=== PATIENT | male | born 1990 | race Two or more races ===

== ENCOUNTER 2017-01-23 22:00 | Inpatient (IN) | payer OTHER ==
[~2017-01-23] VITALS: Ht 172.7 cm; Wt 72.5 kg
[2017-01-23] MEDS ORDERED: ACETAMINOPHEN 325 MG TAB PO ONE ×2 (22:08→22:15)
[2017-01-23 22:45] LABS: Basophils # (auto) 0 uL; Basophils % (auto) 0.1 % (0.0-2.0); Eosinophils # (auto) 0 uL; Hematocrit 48.3 % (41.0-53.0); Hemoglobin 16.4 g/dL (13.5-17.5); Lymphocytes # (auto) 0.9 uL; Mean Corpuscular Hemoglobin 27.9 pg (28.0-32.0); Mean Corpuscular Hgb Conc. 33.9 g/dL (32.0-36.0); Mean Corpuscular Volume 82.3 fL (80.0-100.0); Mean Platelet Volume 7.9 fL (7.4-10.4); Monocytes # (auto) 0.7 uL; Monocytes % (auto) 7.3 % (0.0-12.0); Neutrophils # (auto) 8.3 uL; Neutrophils % (auto) 83.6 % (37.0-80.0); Platelet Count (auto) 251 10^3/uL (140-450); Red Cell Distribution Width 13.5 % (11.6-16.0); White Blood Cell 9.9 10^3/uL (4.4-10.8)
[2017-01-23 23:02] LABS: Albumin 3.3 g/dL (3.4-5.0); Calcium 7.7 mg/dL (8.5-10.1); Potassium 3.9 mmol/L (3.5-5.1)
[2017-01-23 23:13] LABS: Bilirubin, Total 0.9 mg/dL (0.2-1.0); Total Protein 6.9 g/dL (6.4-8.2)
[2017-01-24] MEDS ORDERED: SODIUM CHLORIDE 0.9% 1,000 ML IV ONE (02:30)
[2017-01-24] MEDS ORDERED: PIPERACILLIN-TAZOB 3.375GM 100 ML IV ONE (02:45)
[2017-01-24] MEDS: SODIUM CHLORIDE 0.9% 1,000 ML IV SCH ×2 (04:58→19:01)
[2017-01-24] MEDS ORDERED: ONDANSETRON HCL 4 MG/2 ML VIAL IV PRN (05:00)
[2017-01-24] MEDS: metroNIDAZOLE 250MG/50 ML 50 ML IV SCH ×5 (05:00→21:45)
[2017-01-24] MEDS ORDERED: ACETAMINOPHEN 325 MG TAB PO PRN (05:00)
[2017-01-24] MEDS ORDERED: metroNIDAZOLE 500MG/100ML 100 ML IV ONE (05:30)
[2017-01-24] MEDS: HYDROcodone-ACET 5/325MG TAB PO PRN ×2 (06:18→20:27)
[2017-01-24 08:31] VITALS: BP 108/68
[2017-01-24] MEDS: FAMOTIDINE 20 MG TAB PO SCH ×2 (09:38→21:44)
[2017-01-24] MEDS: cefTRIAXone 1GM/50ML D5W 50 ML IV SCH (09:38)
[2017-01-24 12:48] VITALS: BP 104/60
[2017-01-24 17:00] VITALS: BP 113/67
[2017-01-24 21:58] VITALS: BP 103/57
[2017-01-25] VITALS (7 sets, daily range): BP systolic 105–126; BP diastolic 64–78
[2017-01-25] MEDS: SODIUM CHLORIDE 0.9% 1,000 ML IV SCH ×2 (05:52→18:02)
[2017-01-25] MEDS: metroNIDAZOLE 250MG/50 ML 50 ML IV SCH ×4 (05:52→22:00)
[2017-01-25 05:59] LABS: Basophils # (auto) 0 uL; Basophils % (auto) 0.4 % (0.0-2.0); Eosinophils # (auto) 0.1 uL; Eosinophils % (auto) 1.2 % (0.0-7.0); Hematocrit 43.2 % (41.0-53.0); Hemoglobin 14.3 g/dL (13.5-17.5); Lymphocytes # (auto) 1.5 uL; Lymphocytes % (auto) 30.1 % (10.0-50.0); Mean Corpuscular Hemoglobin 27.6 pg (28.0-32.0); Mean Corpuscular Hgb Conc. 33.1 g/dL (32.0-36.0); Mean Corpuscular Volume 83.4 fL (80.0-100.0); Mean Platelet Volume 8.5 fL (7.4-10.4); Monocytes # (auto) 0.6 uL; Monocytes % (auto) 11.4 % (0.0-12.0); Neutrophils # (auto) 2.8 uL; Neutrophils % (auto) 56.9 % (37.0-80.0); Platelet Count (auto) 199 10^3/uL (140-450); Red Cell Distribution Width 14.1 % (11.6-16.0); White Blood Cell 4.9 10^3/uL (4.4-10.8)
[2017-01-25 06:54] LABS: Albumin 2.5 g/dL (3.4-5.0); BUN/Creatinine Ratio 7.8; Bilirubin, Total 0.4 mg/dL (0.2-1.0); Calcium 7.9 mg/dL (8.5-10.1); Magnesium 2.3 mg/dL (1.6-2.6); Potassium 3.9 mmol/L (3.5-5.1); Total Protein 5.6 g/dL (6.4-8.2)
[2017-01-25] MEDS: FAMOTIDINE 20 MG TAB PO SCH ×2 (09:43→22:00)
[2017-01-25] MEDS: cefTRIAXone 1GM/50ML D5W 50 ML IV SCH (09:43)
[2017-01-25] MEDS: HYDROcodone-ACET 5/325MG TAB PO PRN ×3 (09:54→20:39)
[2017-01-25] MEDS ORDERED: GOLYTELY 4L KIT PO ONE (20:00)
[2017-01-26 04:48] VITALS: BP 106/66
[2017-01-26] MEDS: SODIUM CHLORIDE 0.9% 1,000 ML IV SCH ×2 (05:23→17:14)
[2017-01-26] MEDS ORDERED: MAGNESIUM CITRATE SOLUTION 300 ML BTL PO ONE (06:00)
[2017-01-26] MEDS ORDERED: GOLYTELY 4L KIT PO ONE (06:00)
[2017-01-26] MEDS: metroNIDAZOLE 250MG/50 ML 50 ML IV SCH ×3 (06:57→21:56)
[2017-01-26] MEDS ORDERED: diphenhdrAMINE HCL 50 MG/1 ML VL ONE (08:17)
[2017-01-26] MEDS ORDERED: SODIUM CHLORIDE LOCK 10 ML ONE (08:17)
[2017-01-26] MEDS ORDERED: MIDAZOLAM HCL 5 MG/ML-1ML VIAL ONE (08:17)
[2017-01-26] MEDS ORDERED: fentaNYL CITRATE 100 MCG/2 ML VL ONE (08:17)
[2017-01-26] MEDS: cefTRIAXone 1GM/50ML D5W 50 ML IV SCH (08:50)
[2017-01-26] MEDS: FAMOTIDINE 20 MG TAB PO SCH ×2 (08:52→21:56)
[2017-01-26 09:00] VITALS: BP 112/66
[2017-01-26 10:40] LABS: Partial Thromboplastin Time 31.3 sec (22.64-33.71); Prothrombin Time 12.2 sec (9.37-12.3)
[2017-01-26 10:51] LABS: INR 1.18 (0.9-1.15)
[2017-01-26 12:58] VITALS: BP 119/76
[2017-01-26] MEDS ORDERED: fentaNYL CITRATE 100 MCG/2 ML VL IV ONE ×2 (15:45→15:46)
[2017-01-26] MEDS ORDERED: MIDAZOLAM HCL 5 MG/ML-1ML VIAL IV ONE ×3 (15:45→15:52)
[2017-01-26] MEDS ORDERED: SIMETHICONE 40 MG/0.6 ML ORAL DROP ONE (15:46)
[2017-01-26] MEDS ORDERED: diphenhdrAMINE HCL 50 MG/1 ML VL IV ONE ×2 (15:47→15:52)
[2017-01-26 17:00] VITALS: BP 115/64
[2017-01-26] MEDS: SULFASALAZINE 500 MG TAB PO SCH ×2 (18:14→21:56)
[2017-01-26 19:30] VITALS: BP 118/61
[2017-01-26] MEDS: methylPREDNISolone SOD SUCC 40 MG/ML VL IV SCH (21:56)
[2017-01-26 22:15] VITALS: BP 118/61
[2017-01-27] MEDS: metroNIDAZOLE 250MG/50 ML 50 ML IV SCH ×2 (05:36→14:05)
[2017-01-27] MEDS: SULFASALAZINE 500 MG TAB PO SCH ×2 (05:36→12:50)
[2017-01-27] MEDS: methylPREDNISolone SOD SUCC 40 MG/ML VL IV SCH ×2 (05:36→14:05)
[2017-01-27 05:40] VITALS: BP 111/78
[2017-01-27 05:46] LABS: Basophils # (auto) 0 uL; Basophils % (auto) 0.3 % (0.0-2.0); Eosinophils # (auto) 0 uL; Eosinophils % (auto) 0.2 % (0.0-7.0); Hematocrit 47.8 % (41.0-53.0); Lymphocytes % (auto) 28.2 % (10.0-50.0); Mean Corpuscular Hemoglobin 27.7 pg (28.0-32.0); Mean Corpuscular Hgb Conc. 33.4 g/dL (32.0-36.0); Mean Platelet Volume 8.5 fL (7.4-10.4); Monocytes # (auto) 0.2 uL; Monocytes % (auto) 4.7 % (0.0-12.0); Neutrophils # (auto) 2.3 uL; Neutrophils % (auto) 66.6 % (37.0-80.0); Platelet Count (auto) 289 10^3/uL (140-450); Red Cell Distribution Width 14.3 % (11.6-16.0); White Blood Cell 3.4 10^3/uL (4.4-10.8)
[2017-01-27 05:56] LABS: INR 1.12 (0.9-1.15); Prothrombin Time 11.5 sec (9.37-12.3)
[2017-01-27 06:01] LABS: Albumin 2.8 g/dL (3.4-5.0); BUN/Creatinine Ratio 7.6; Magnesium 2.2 mg/dL (1.6-2.6); Potassium 4.4 mmol/L (3.5-5.1)
[2017-01-27 06:05] LABS: Bilirubin, Total 0.2 mg/dL (0.2-1.0); Total Protein 6.1 g/dL (6.4-8.2)
[2017-01-27] MEDS: SODIUM CHLORIDE 0.9% 1,000 ML IV SCH (07:58)
[2017-01-27 09:00] VITALS: BP 107/63
[2017-01-27] MEDS: cefTRIAXone 1GM/50ML D5W 50 ML IV SCH (09:31)
[2017-01-27] MEDS: FAMOTIDINE 20 MG TAB PO SCH (09:37)
[2017-01-27 13:00] VITALS: BP 122/69
[2017-01-27] MEDS ORDERED: SODIUM CHLORIDE 0.9% 1,000 ML IV SCH (13:21)
== END 2017-01-27 15:10 | disposition home or self-care (01) | DRG 253 ==
LOC: ER 22:06 → OVERFLOW 22:07 → EAST 01-24 07:46 → WEST WING 01-24 11:08
PROVIDERS: ADMIT Nurse Practitioner; ATTEND Internal Medicine
PROC: 0DBG8ZX Excision of Left Large Intestine, Via Natural or Artificial Opening Endoscopic, Diagnostic (ICD-10-PCS; principal; 2017-01-23)
PROC: 0DBF8ZX Excision of Right Large Intestine, Via Natural or Artificial Opening Endoscopic, Diagnostic (ICD-10-PCS; 2017-01-23)
DX: K62.5 Hemorrhage of anus and rectum (principal); N17.0 Acute kidney failure with tubular necrosis; K52.9 Noninfective gastroenteritis and colitis, unspecified; E87.1 Hypo-osmolality and hyponatremia; F15.90 Other stimulant use, unspecified, uncomplicated
CPT/HCPCS: 36415; 74176; 80053; 80061; 82150; 83605; 83690; 83735; 85025; 85610; 85730; 87040; 96365; 96366; 96375; G0434; J0696; J2250; J2543; J3490

== ENCOUNTER 2024-10-01 09:53 | Inpatient (IN) | payer MEDICAID ==
[~2024-10-01] VITALS: Ht 172.7 cm; Wt 83.7 kg
--- NOTE | 2024-10-01 10:17 | ED.PDOC ---
History of Present Illness HPI Comments 34 year old male presents to the ED with chief complaint of spider bite. Patient relays that he believes he was bite by a "black spider" around 5am to the right lower leg, managing to smash the spider at the time. Patient reports that he soon started to experience burning/sharp pain to the site of the bite that radiates up his leg and to his abdomen, causing cramping and back stiffness. Patient states he is now experiencing chest pressure and denies any history of cardiac disease. Patient denies any N/V/D, fever, chills, dizziness, headache, SOB or numbness. Chief Complaint: Insect Bite Time Seen by MD: 10:12 Reviewed Notes: Nurses Notes, Medications, Allergies Allergies: Coded Allergies: NO KNOWN ALLERGIES (Unverified , 01/23/17) Home Meds No Active Prescriptions or Reported Meds Information Source: Patient Mode of Arrival: Ambulatory Severity: Moderate Timing: Hours Duration: Since onset Prehospital treatment: None Past Medical History PAST MEDICAL HISTORY: Schizophrenia Past Medical History (Other): Bipolar disorder Surgical History: Denies all surgeries Family History Family History: Unobtainable Social History Smoker: Non-Smoker Alcohol: Denies ETOH Use Drugs: Methamphetamine Lives In: Home Constitutional: denies: chills, diaphoresis, fatigue, fever, malaise, sweats, weakness, others EENTM: denies: blurred vision, double vision, ear bleeding, ear discharge, ear drainage, ear pain, ear ringing, eye pain, eye redness, hearing loss, mouth pa in, mouth swelling, nasal discharge, nose bleeding, nose congestion, nose pain, photophobia, tearing, throat pain, throat swelling, voice changes, others Respiratory: denies: cough, hemoptysis, orthopnea, SOB at rest, shortness of breath, SOB with excertion, stridor, wheezing, others Cardiovascular: reports: chest pain; denies: dizzy spells, diaphoresis, Dyspnea on exertion, edema, irregular heart beat, left arm pain, lightheadedness, palpitations, PND, syncope, others Gastrointestinal: reports: abdominal pain; denies: abdomen distended, blood streaked bowels, constipated, diarrhea, dysphagia, difficulty swallowing, hematemesis, melena, nausea, poor appetite, poor fluid intake, rectal bleeding, rectal pain, vomiting, others Genitourinary: denies: burning, dysuria, flank pain, frequency, hematuria, incontinence, penile discharge, penile sore, pain, testicle pain, testicle swelling, urgency, others Neurological: denies: dizziness, fainting, headache, left sided numbness, left sided weakness, numbness, paresthesia, pre-existing deficit, right sided numbness, right sided weakness, seizure, speech problems, tingling, tremors, weakness, others Musculoskeletal: reports: others (Back stiffness, Right lower leg radiating burning pain); denies: back pain, gout, joint pain, joint swelling, muscle pain, muscle stiffness, neck pain Integumetry: denies: bruises, change in color, change in hair/nails, dryness, laceration, lesions, lumps, rash, wounds, others Allergic/Immunocompromised: denies: Difficulty Healing, Frequent Infections, Hives, Itching, others Hematologic/Lymphatic: denies: anemia, blood clots, easy bleeding, easy bruising, swollen glands, others Endocrine: denies: excessive hunger, excessive sweating, excessive thirst, excessive urination, flushing, intolerance to cold, intolerance to heat, unexplained weight gain, unexplained weight loss, others Psychiatric: denies: anxiety, bipolar disorder, depression, hopeless, panic disorder, schizophrenia, sleepless, suicidal, others All Other Systems: Reviewed and Negative Physical Exam General Appearance: Moderate Distress, Normal HEENT: Normal ENT Inspection, PERRL/EOMI Neck: Full Range of Motion, Non-Tender, Normal, Normal Inspection Respiratory: Chest Non-Tender, Lungs Clear, No Accessory Muscle Use, No Respiratory Distress, Normal Breath Sounds Cardiovascular: No Edema, No JVD, No Murmur, No Gallop, Normal Peripheral Pulses, Regular Rate/Rhythm Breast Exam: Deferred Gastrointestinal: No Organomegaly, Non Tender, No Pulsatile Mass, Normal Bowel Sounds, Other (Palpable muscle cramps to abdominal wall) Genitalia: Deferred Pelvic: Deferred Rectal: Deferred Extremities: No calf tenderness, Normal capillary refill, Normal inspection, Normal range of motion, Non-tender, No pedal edema Musculoskeletal : Apperance: Normal Neurologic: Alert, ladies locker room attendant II-XII nml as Tested, No Motor Deficits, Normal Affect, Normal Mood, No Sensory Deficits Cerebellar Function: Normal Reflexes: Normal Skin: Dry, Normal Color, Warm Lymphatic: No Adenopathy Was a procedure done? Was a procedure done?: No EKG EKG : Pulse Rate (adult): 68 [place]: Normal Cardiac Rhythm: NSR Block: None Hypertrophy: None ST: Normal Differential Dx Considerations may include: anaphylaxis, allergic reaction, cellulitis, rhabdomyolysis, coronary ischemia and others X-Ray, Labs, Meds, VS Vital Signs Date Time Temp Pulse Resp B/P (MAP) Pulse Ox O2 Delivery O2 Flow Rate FiO2 10/01/24 11:03 77 20 147/104 10/01/24 11:00 72 16 147/104 (118) 100 10/01/24 10:33 75 20 141/88 10/01/24 10:20 98.3 75 20 141/88 (105) 99 98.3 10/01/24 10:20 75 75 99 Room Air* 0 21 10/01/24 10:17 68 10/01/24 10:05 68 10/01/24 10:00 97.8 90 18 137/93 (108) 100 Lab Test 10/01/24 10:17 Range/Units White Blood Count 5.4 4.4-10.8 10^3/uL Red Blood Count 5.29 4.5-5.90 10^6/uL Hemoglobin 15.2 13.5-17.5 g/dL Hematocrit 43.6 41.0-53.0 % Mean Corpuscular Volume 82.4 80.0-100.0 fL Mean Corpuscular Hemoglobin 28.8 28.0-32.0 pg Mean Corpuscular Hemoglobin Concent 35.0 32.0-36.0 g/dL Red Cell Distribution Width 14.0 11.8-14.3 % Platelet Count 240 140-450 10^3/uL Mean Platelet Volume 8.2 6.9-10.8 fL Neutrophils (%) (Auto) 62.2 37.0-80.0 % Lymphocytes (%) (Auto) 28.6 10.0-50.0 % Monocytes (%) (Auto) 7.0 0.0-12.0 % Eosinophils (%) (Auto) 1.5 0.0-7.0 % Basophils (%) (Auto) 0.7 0.0-2.0 % Neutrophils # (Auto) 3.4 1.6-8.6 10 ^3/uL Lymphocytes # (Auto) 1.5 0.4-5.4 10 ^3/uL Monocytes # (Auto) 0.4 0-1.3 10 ^3/uL Eosinophils # (Auto) 0.1 0-0.8 10 ^3/uL Basophils # (Auto) 0 0-0.2 10 ^3/uL Nucleated Red Blood Cells 0.1 % Sodium Level 141 136-145 mmol/L Potassium Level 3.9 3.5-5.1 mmol/L Chloride Level 107 98-107 mmol/L Carbon Dioxide Level 28 20-31 mmol/L Anion Gap 6 5-15 Blood Urea Nitrogen 12 9-23 mg/dL Creatinine 1.06 0.700-1.30 mg/dL Glomerular Filtration Rate Calc 93 >90 mL/min BUN/Creatinine Ratio 11.3 10.0-20.0 Serum Glucose 105 74-106 mg/dL Calcium Level 10.0 8.7-10.4 mg/dL Magnesium Level 2.3 1.6-2.6 mg/dL Total Bilirubin 0.8 0.2-1.0 mg/dL Aspartate Amino Transferase (AST) 17 13-40 U/L Alanine Aminotransferase (ALT) 28 7-40 U/L Alkaline Phosphatase 123 H 46-116 U/L Creatine Kinase 89 46-171 U/L Creatine Kinase MB Pending Total Protein 7.5 5.7-8.2 g/dL Albumin 4.9 H 3.2-4.8 g/dL Current Medications Medications (Trade) Dose Ordered Sig/Senait Route Start Time Stop Time Status Last Admin Sodium Chloride 1,000 ml @ 1,000 mls/hr Q1H ONCE IVB 10/01/24 10:15 10/01/24 11:14 DC 10/01/24 10:31 Morphine Sulfate 4 mg ONCE ONCE IV 10/01/24 10:15 10/01/24 10:16 DC 10/01/24 10:33 Ondansetron HCl (Zofran) 4 mg ONCE ONCE IV 10/01/24 10:15 10/01/24 10:16 DC 10/01/24 10:32 Chest XR: FINDINGS: Lines and Tubes: None Lungs: No focal consolidation. Pleura: No effusion.No pneumothorax. Cardiomediastinal contours: Unremarkable Bones: No acute osseous abnormality. IMPRESSION: 1. No acute cardiopulmonary disease. Images Reviewed?: Images reviewed and evaluated by me Time of 1ST Reevaluation: 11:12 Reevaluation 1ST: Unchanged Time of 2ND Reevaluation: 10:45 Reevaluation 2ND: Unchanged (Having involuntary abd wall muscle spasms and pain, will admit for supportive care and further workup) Patient Education/Counseling: Diagnosis, Treatment Family Education/Counseling: No Family Present Departure 1 Departure Time of Disposition: 10:46 Impression: Primary Impression: Black spider bite Additional Impressions: Chest pain Abdominal pain Disposition: 09 ADMITTED INPATIENT Condition: Guarded e-Prescriptions No Active Prescriptions or Reported Meds Critical Care Note Critical Care Time?: Yes Critical care comment: Total critical care time: Approximately 36 minutes Due to a high probability of clinically significant, life threatening deterioration, the patient required my highest level of preparedness to intervene emergently and I personally spent this critical care time directly and personally managing the patient. This critical care time included obtaining a history; examining the patient; pulse oximetry; ordering and review of studies; arranging urgent treatment with development of a management plan; evaluation of patient's response to treatment; frequent reassessment; and, discussions with other providers. Stability Stability form required: No Heart Score Heart Score: Heart Score Response (Comments) Value History Moderate Suspicious 1 EKG Normal 0 Age <45 0 Risk Factors No known risk factors 0 Troponin Normal limit 0 Total 1 I personally scribed for EDER CALDERÓN MD ([email or web address]) on 10/01/24 at 10:17. Electronically submitted by Jak Rick ([email or web address]). I personally scribed for EDER CALDERÓN MD ([email or web address]) on 10/01/24 at 10:54. Electronically submitted by Jak Rick ([email or web address]). EDER CALDERÓN MD Oct 01, 2024 10:17
[2024-10-01 10:20] VITALS: PULSE 75; RESP 75; TEMP 98.3; O2SAT 99
[2024-10-01 10:29] LABS: Basophils # (auto) 0 10 ^3/uL (0-0.2); Basophils % (auto) 0.7 % (0.0-2.0); Eosinophils # (auto) 0.1 10 ^3/uL (0-0.8); Eosinophils % (auto) 1.5 % (0.0-7.0); Hematocrit 43.6 % (41.0-53.0); Hemoglobin 15.2 g/dL (13.5-17.5); Lymphocytes # (auto) 1.5 10 ^3/uL (0.4-5.4); Lymphocytes % (auto) 28.6 % (10.0-50.0); Mean Corpuscular Hemoglobin 28.8 pg (28.0-32.0); Mean Corpuscular Volume 82.4 fL (80.0-100.0); Monocytes # (auto) 0.4 10 ^3/uL (0-1.3); Neutrophils # (auto) 3.4 10 ^3/uL (1.6-8.6); Neutrophils % (auto) 62.2 % (37.0-80.0); Nucleated Red Blood Cells % 0.1 %; Platelet Count (auto) 240 10^3/uL (140-450); Red Blood Cells 5.29 10^6/uL (4.5-5.90); White Blood Cell 5.4 10^3/uL (4.4-10.8)
[2024-10-01] MEDS: SODIUM CHLORIDE 0.9% 1,000 ML IVB ONE (10:31)
[2024-10-01] MEDS: ONDANSETRON HCL 4 MG/2 ML VIAL IV ONE (10:32)
[2024-10-01] MEDS: MORPHINE SULFATE 4 MG/ML SYR/VIAL IV ONE (10:33)
--- NOTE | 2024-10-01 10:38 | DVH ---
CHEST RADIOGRAPH Indication: chest pain Technique: Single frontal view of the chest was obtained Comparison: None FINDINGS: Lines and Tubes: None Lungs: No focal consolidation. Pleura: No effusion.No pneumothorax. Cardiomediastinal contours: Unremarkable Bones: No acute osseous abnormality. IMPRESSION: 1. No acute cardiopulmonary disease. HS:Y
[2024-10-01 10:43] LABS: Alanine Aminotransferase 28 U/L (7-40); Albumin 4.9 g/dL (3.2-4.8); Alkaline Phosphatase 123 U/L (46-116); Anion Gap 6 (5-15); Aspartate Aminotransferase 17 U/L (13-40); BUN/Creatinine Ratio 11.3 (10.0-20.0); Bilirubin, Total 0.8 mg/dL (0.2-1.0); Blood Urea Nitrogen 12 mg/dL (9-23); Carbon Dioxide 28 mmol/L (20-31); Chloride 107 mmol/L (98-107); Creatine Kinase IFCC 89 U/L (46-171); Glucose 105 mg/dL (74-106); Magnesium 2.3 mg/dL (1.6-2.6); Potassium 3.9 mmol/L (3.5-5.1); Sodium 141 mmol/L (136-145); Total Protein 7.5 g/dL (5.7-8.2)
--- NOTE | 2024-10-01 12:21 | DVHHP2 ---
History of Present Illness Reason for Visit: Spider bite on RLE History of Present Illness Brian Anderson is a 34YO M with pmHx of ulcerative colitis, bipolar disorder, schizophrenia, and psychosis who presents to the ED for a spider bite that occurred this morning in bed at his family's home. Upon examination patient reports he was sleeping and awoke to the pain by the spider. Patient reports he is visiting from [place] since last week and had a psych MD (Dr. Otto from [facility] in [place]) and patient is noncompliant with his medications. Patient reports he doesn't recall what medications he takes. Patient states pain starts from the RLE to the groin to the abdomen to his chest and is on and off from 7 to 10/10 is sharp in nature. He reports chest pressure but denies chest pain. Patient denies N/V/D, shortness of breath, fever, and chills. GI: Other (Ulcereative colitis) Psych: Bipolar, Psychosis, Schizophrenia Past Surgical History: None Family History: None Smoke: <1 pack per day ALCOHOL: rare Drugs: Other Lives: with Family Domestic Violence: Neg Review of Systems Constitutional: No: Fever, Chills, Sweats, Weakness, Malaise, Other Eyes: No: Pain, Vision change, Conjunctivae inflammation, Eyelid inflammation, Other, Redness ENT: No: Ear pain, Ear discharge, Nose pain, Nose discharge, Nose congestion, Mouth pain, Mouth swelling, Throat pain, Throat swelling, Other Respiratory: No: Cough, Dry, Shortness of breath, SOB with excertion, Wheezing, Hemoptysis, Pleuritic Pain, Sputum, Wheezing, Other Cardiovascular: Other (chest pressure) Gastrointestinal: No: Nausea, Vomiting, Abdominal Pain, Diarrhea, Constipation, Melena, Hematochezia, Other Genitourinary: No Dysuria, No Frequency, No Incontinence, No Hematuria, No Retention, No Other Musculoskeletal: back pain, leg pain Skin: Other (multiple erythematous bumps on anterior RLE) Neurological: No: Weakness, Numbness, Incoordination, Change in speech, Confusion, Seizures, Other Allergies: Coded Allergies: NO KNOWN ALLERGIES (Unverified , 01/23/17) Exam Vital Signs Vital Signs Date Time Temp Pulse Resp B/P (MAP) Pulse Ox O2 Delivery O2 Flow Rate FiO2 10/01/24 11:03 77 20 147/104 10/01/24 11:00 100 10/01/24 10:00 97.8 General Appearance: Alert, Oriented X3, Cooperative, No acute distress HEENT: PERRLA, EOMI, Mucous membr. moist/pink Respiratory: Clear to auscultation, Normal air movement Cardiovascular: Regular rate, Normal S1, Normal S2, No murmurs Abdominal: Normal bowel sounds, Soft, No tenderness, No hepatospenomegaly Extremities: No clubbing, No cyanosis, No edema, Normal pulses, No tenderness/swelling Skin: No breakdown Neuro: Normal gait, Normal speech, Strength at 5/5 X4 ext, Normal tone, Sensation intact Psych/Mental Status: Mental status NL, Mood NL Labs/Xrays Labs Test 10/01/24 10:17 Range/Units White Blood Count 5.4 4.4-10.8 10^3/uL Red Blood Count 5.29 4.5-5.90 10^6/uL Hemoglobin 15.2 13.5-17.5 g/dL Hematocrit 43.6 41.0-53.0 % Mean Corpuscular Volume 82.4 80.0-100.0 fL Mean Corpuscular Hemoglobin 28.8 28.0-32.0 pg Mean Corpuscular Hemoglobin Concent 35.0 32.0-36.0 g/dL Red Cell Distribution Width 14.0 11.8-14.3 % Platelet Count 240 140-450 10^3/uL Mean Platelet Volume 8.2 6.9-10.8 fL Neutrophils (%) (Auto) 62.2 37.0-80.0 % Lymphocytes (%) (Auto) 28.6 10.0-50.0 % Monocytes (%) (Auto) 7.0 0.0-12.0 % Eosinophils (%) (Auto) 1.5 0.0-7.0 % Basophils (%) (Auto) 0.7 0.0-2.0 % Neutrophils # (Auto) 3.4 1.6-8.6 10 ^3/uL Lymphocytes # (Auto) 1.5 0.4-5.4 10 ^3/uL Monocytes # (Auto) 0.4 0-1.3 10 ^3/uL Eosinophils # (Auto) 0.1 0-0.8 10 ^3/uL Basophils # (Auto) 0 0-0.2 10 ^3/uL Nucleated Red Blood Cells 0.1 % Sodium Level 141 136-145 mmol/L Potassium Level 3.9 3.5-5.1 mmol/L Chloride Level 107 98-107 mmol/L Carbon Dioxide Level 28 20-31 mmol/L Anion Gap 6 5-15 Blood Urea Nitrogen 12 9-23 mg/dL Creatinine 1.06 0.700-1.30 mg/dL Glomerular Filtration Rate Calc 93 >90 mL/min BUN/Creatinine Ratio 11.3 10.0-20.0 Serum Glucose 105 74-106 mg/dL Calcium Level 10.0 8.7-10.4 mg/dL Magnesium Level 2.3 1.6-2.6 mg/dL Total Bilirubin 0.8 0.2-1.0 mg/dL Aspartate Amino Transferase (AST) 17 13-40 U/L Alanine Aminotransferase (ALT) 28 7-40 U/L Alkaline Phosphatase 123 H 46-116 U/L Creatine Kinase 89 46-171 U/L Total Protein 7.5 5.7-8.2 g/dL Albumin 4.9 H 3.2-4.8 g/dL CHEST RADIOGRAPH Indication: chest pain FINDINGS: Lines and Tubes: None Lungs: No focal consolidation. Pleura: No effusion.No pneumothorax. Cardiomediastinal contours: Unremarkable Bones: No acute osseous abnormality. IMPRESSION: 1. No acute cardiopulmonary disease. Assessment/Plan Assessment/Plan Assessment: R/O cellulitis 2nd to spider bite Hx of psychosis Bipolar disorder Schizophrenia Ulcerative colitis Plan: Admit to telemetry Psych consult IVf Diet as tolerated Anti-anxiolytics Antipsychotics IV Abx Diet as tolerated Pain management AM Labs Discussed plan of care with patient and nurse Plan discussed with: Patient Problem List: (1) Spider bite wound Date of Service: Oct 01, 2024 Billing Provider: DEVON SANTA Common Visit Codes: [id number] INP/OBS CARE (MOD) DEVON SANTA Oct 01, 2024 12:21
[2024-10-01] MEDS ORDERED: DOCUSATE SOD 100 MG CAP PO PRN (12:30)
[2024-10-01] MEDS ORDERED: ONDANSETRON HCL 4 MG/2 ML VIAL IV PRN (12:30)
[2024-10-01] MEDS ORDERED: HALOPERIDOL LACTATE 5 MG/ML INJ VIAL IV PRN (12:30)
[2024-10-01] MEDS ORDERED: MORPHINE SULFATE INJ 2 MG/ml SYRG IV PRN (12:30)
[2024-10-01] MEDS: CLINDAMYCIN 300MG IV 50 ML IV ONE (13:14)
[2024-10-01] MEDS: SODIUM CHLORIDE 0.9% 1,000 ML IV SCH (13:16)
[2024-10-01] MEDS: HYDROcodone-ACET 5/325MG TAB PO PRN (13:36)
[2024-10-01] MEDS: ACETAMINOPHEN 325 MG TAB PO PRN (14:36)
[2024-10-01 18:37] VITALS: BP 141/90; PULSE 72; RESP 16; O2SAT 100
[2024-10-01] MEDS ORDERED: QUEtiapine FUMARATE 100 MG TAB PO SCH (22:00)
[2024-10-01] MEDS ORDERED: CLINDAMYCIN 300MG IV 50 ML IV SCH (22:00)
--- NOTE | 2024-10-03 07:13 | ECG ---
[facility] Test Date: 2024-10-01 Test Time: 22:45:16 Pat Name: JARON FRY Department: ER Room: [address] [place] [address] Gender: M Acidizer Water Well: JACEK : 1990 Requested By: EDER CALDERÓN Order Number: [id number] Reading MD: Phil Bell Measurements Intervals [place] Rate: 81 P: 0 SC: 0 QRS: 69 QRSD: 108 T: 18 QT: 418 QTc: 486 Interpretive Statements Normal sinus rhythm Nonspecific T abnrm, anterolateral leads Borderline prolonged QT interval Artifact in lead(s) II,III,aVL,aVF,V4,V5,V6 Electronically Signed On 10-06-2024 8:55:29 PST by Phil Bell Please click the below link to view image of tracing.
== END 2024-10-01 18:40 | disposition left against medical advice (07) | DRG 816 ==
LOC: ER 09:53 → TELE 12:21
DX: T63.311A Toxic effect of venom of black widow spider, accidental (unintentional), initial encounter (principal); L03.115 Cellulitis of right lower limb; F17.210 Nicotine dependence, cigarettes, uncomplicated; F20.9 Schizophrenia, unspecified; Z91.148 Patient's other noncompliance with medication regimen for other reason; F31.9 Bipolar disorder, unspecified; Z53.29 Procedure and treatment not carried out because of patient's decision for other reasons; K51.90 Ulcerative colitis, unspecified, without complications; Y92.89 Other specified places as the place of occurrence of the external cause; Y93.89 Activity, other specified; Y99.8 Other external cause status
CPT/HCPCS: 36415; 71045; 80053; 82550; 82553; 83735; 85025; 93005; 96365; 96375; 99291; G0378; J2405; J3490

== ENCOUNTER 2024-10-01 22:40 | Emergency (ER) | payer MEDICAID ==
[~2024-10-01] VITALS: Ht 172.7 cm; Wt 84.0 kg
[2024-10-01 23:16] VITALS: PULSE 104; RESP 20; O2SAT 98
[2024-10-01] MEDS: MORPHINE SULFATE 4 MG/ML SYR/VIAL IV ONE (23:36)
[2024-10-01] MEDS: ONDANSETRON HCL 4 MG/2 ML VIAL IV ONE (23:37)
--- NOTE | 2024-10-01 23:37 | ED.PDOC ---
History of Present Illness HPI Comments 34 y/o M, with a Hx of ulcerative colitis, schizophrenia, bipolar disorder, schizophrenia, psychosis and substance abuse, presents with mother for c/o chest pain, generalized bodyaches, and diaphoresis, today. Patient comments on being bitting in his lower right leg, earlier, today, and developing symptoms later in the in the evening. Patient comments on pain originating in his right leg and radiating to his entire body and describes it as burning in quality. Patient admits to being evaluated in ED for same c/o, earlier, but leaving AMA in addition to endorsing Hx of crystal methamphetamine abuse but refuting any recent illicit substance use. Patient denies having any shortness of breath, dizziness, vision or speech changes, fever, chills, or other associated symptoms or modifiers at this time. Chief Complaint: Chest Pain Time Seen by MD: 23:00 Reviewed Notes: Nurses Notes, Medications, Allergies Allergies: Coded Allergies: NO KNOWN ALLERGIES (Unverified , 01/23/17) Home Meds No Active Prescriptions or Reported Meds Information Source: Patient Mode of Arrival: Ambulatory Severity: Moderate Timing: Hours Duration: Since onset Prehospital treatment: None Past Medical History PAST MEDICAL HISTORY: Schizophrenia Past Medical History (Other): ulcerative colitis, bipolar disorder, and psychosis Surgical History: Denies all surgeries Family History Family History: Unobtainable Social History Smoker: Non-Smoker Alcohol: Denies ETOH Use Drugs: Methamphetamine Lives In: Home Constitutional: reports: diaphoresis; denies: chills, fatigue, fever, malaise, sweats, weakness, others EENTM: denies: blurred vision, double vision, ear bleeding, ear discharge, ear drainage, ear pain, ear ringing, eye pain, eye redness, hearing loss, mouth pain, mouth swelling, nasal discharge, nose bleeding, nose congestion, nose pain , photophobia, tearing, throat pain, throat swelling, voice changes, others Respiratory: denies: cough, hemoptysis, orthopnea, SOB at rest, shortness of breath, SOB with excertion, stridor, wheezing, others Cardiovascular: reports: chest pain; denies: dizzy spells, diaphoresis, Dyspnea on exertion, edema, irregular heart beat, left arm pain, lightheadedness, palpitations, PND, syncope, others Gastrointestinal: denies: abdomen distended, abdominal pain, blood streaked bowels, constipated, diarrhea, dysphagia, difficulty swallowing, hematemesis, melena, nausea, poor appetite, poor fluid intake, rectal bleeding, rectal pain, vomiting, others Genitourinary: denies: burning, dysuria, flank pain, frequency, hematuria, incontinence, penile discharge, penile sore, pain, testicle pain, testicle swelling, urgency, others Neurological: denies: dizziness, fainting, headache, left sided numbness, left sided weakness, numbness, paresthesia, pre-existing deficit, right sided numbness, right sided weakness, seizure, speech problems, tingling, tremors, weakness, others Musculoskeletal: reports: others (generalized bodyaches ); denies: back pain, gout, joint pain, joint swelling, muscle pain, muscle stiffness, neck pain Integumetry: denies: bruises, change in color, change in hair/nails, dryness, laceration, lesions, lumps, rash, wounds, others Allergic/Immunocompromised: denies: Difficulty Healing, Frequent Infections, Hives, Itching, others Hematologic/Lymphatic: denies: anemia, blood clots, easy bleeding, easy bruising, swollen glands, others Endocrine: denies: excessive hunger, excessive sweating, excessive thirst, excessive urination, flushing, intolerance to cold, intolerance to heat, unexplained weight gain, unexplained weight loss, others Psychiatric: denies: anxiety, bipolar disorder, depression, hopeless, panic disorder, schizophrenia, sleepless, suicidal, others All Other Systems: Reviewed and Negative Physical Exam General Appearance: No Apparent Distress, Normal HEENT: Normal ENT Inspection, Pharynx Normal, TMs Normal Neck: Full Range of Motion, Non-Tender, Normal, Normal Inspection Respiratory: Chest Non-Tender, Lungs Clear, No Accessory Muscle Use, No Respiratory Distress, Normal Breath Sounds Cardiovascular: No Edema, No JVD, No Murmur, No Gallop, Normal Peripheral Pulses, Regular Rate/Rhythm Breast Exam: Deferred Gastrointestinal: No Organomegaly, Non Tender, No Pulsatile Mass, Normal Bowel Sounds, Soft Genitalia: Deferred Pelvic: Deferred Rectal: Deferred Extremities: No calf tenderness, Normal capillary refill, Normal inspection, Normal range of motion, Non-tender, No pedal edema Musculoskeletal : Apperance: Normal Neurologic: Alert, international account manager II-XII nml as Tested, No Motor Deficits, Normal Affect, Normal Mood, No Sensory Deficits Cerebellar Function: Normal Reflexes: Normal Skin: Dry, Normal Color, Warm Lymphatic: No Adenopathy Was a procedure done? Was a procedure done?: No EKG EKG : Pulse Rate (adult): [address] [place]: Normal Cardiac Rhythm: Afib Block: None Hypertrophy: None ST: Normal Differential Dx Considerations may include: [place], ACS, AFIB, arrhythmia, PE, anxiety, musculoskeletal pain, electrolyte imbalance X-Ray, Labs, Meds, VS Vital Signs Date Time Temp Pulse Resp B/P (MAP) Pulse Ox O2 Delivery O2 Flow Rate FiO2 10/02/24 02:11 82 18 145/100 10/02/24 02:10 82 18 145/100 (115) 98 10/01/24 23:36 104 20 166/108 10/01/24 23:16 104 20 166/108 (127) 98 10/01/24 23:16 104 20 98 Room Air* 0 21 10/01/24 22:48 98.0 89 20 136/85 (102) 97 10/01/24 22:45 81 Lab Test 10/01/24 23:37 10/01/24 22:50 Range/Units Troponin I High Sensitivity 3 L 3 L </=54 ng/L White Blood Count 10.8 # 4.4-10.8 10^3/uL Red Blood Count 5.48 4.5-5.90 10^6/uL Hemoglobin 15.4 13.5-17.5 g/dL Hematocrit 45.3 41.0-53.0 % Mean Corpuscular Volume 82.7 80.0-100.0 fL Mean Corpuscular Hemoglobin 28.2 28.0-32.0 pg Mean Corpuscular Hemoglobin Concent 34.1 32.0-36.0 g/dL Red Cell Distribution Width 13.8 11.8-14.3 % Platelet Count 287 140-450 10^3/uL Mean Platelet Volume 8.9 6.9-10.8 fL Neutrophils (%) (Auto) 83.6 H 37.0-80.0 % Lymphocytes (%) (Auto) 9.8 L 10.0-50.0 % Monocytes (%) (Auto) 6.4 0.0-12.0 % Eosinophils (%) (Auto) 0.0 0.0-7.0 % Basophils (%) (Auto) 0.2 0.0-2.0 % Neutrophils # (Auto) 9.0 H 1.6-8.6 10 ^3/uL Lymphocytes # (Auto) 1.0 0.4-5.4 10 ^3/uL Monocytes # (Auto) 0.7 0-1.3 10 ^3/uL Eosinophils # (Auto) 0 0-0.8 10 ^3/uL Basophils # (Auto) 0 0-0.2 10 ^3/uL Nucleated Red Blood Cells 0.1 % Sodium Level 142 136-145 mmol/L Potassium Level 3.7 3.5-5.1 mmol/L Chloride Level 108 H 98-107 mmol/L Carbon Dioxide Level 21 20-31 mmol/L Anion Gap 13 5-15 Blood Urea Nitrogen 15 9-23 mg/dL Creatinine 1.31 H 0.700-1.30 mg/dL Glomerular Filtration Rate Calc 72 >90 mL/min BUN/Creatinine Ratio 11.5 10.0-20.0 Serum Glucose 143 H 74-106 mg/dL Calcium Level 10.3 8.7-10.4 mg/dL Total Bilirubin 0.9 0.2-1.0 mg/dL Aspartate Amino Transferase (AST) 16 13-40 U/L Alanine Aminotransferase (ALT) 28 7-40 U/L Alkaline Phosphatase 128 H 46-116 U/L Total Protein 8.1 5.7-8.2 g/dL Albumin 5.2 H 3.2-4.8 g/dL Current Medications Medications (Trade) Dose Ordered Sig/Senait Route Start Time Stop Time Status Last Admin Morphine Sulfate 4 mg ONCE ONCE IV 10/01/24 23:15 10/01/24 23:16 DC 10/01/24 23:36 Ondansetron HCl (Zofran) 4 mg ONCE ONCE IV 10/01/24 23:15 10/01/24 23:16 DC 10/01/24 23:37 Lorazepam (Ativan Tablet) 1 mg ONCE ONCE PO 10/02/24 01:45 10/02/24 01:46 DC 10/02/24 02:[address] [address] Ph: [phone] DIAGNOSTIC IMAGING Diagnostic Imaging Report : [id number] Signed PATIENT: JARON FRY ACCT: [id number] UNIT: [id number] : 1990 LOC: ER ROOM / BED: / AGE / SEX: 34 / M ADM STATUS: REG ER SERVICE 06 ORDERING PHYSICIAN: JANNA VELEZ PROCEDURE(s): CXR1 - CHEST XRAY 1 VIEW REASON: cp ORDER NUMBER(s): [id number], ACCESSION NUMBER(s): [id number] CHEST RADIOGRAPH Indication: cp Technique: Single frontal view of the chest was obtained Comparison: XY CHEST PORTABLE on DOS: 10/01/24 FINDINGS: Lines and Tubes: None Lungs: Clear Pleura: No effusion. No pneumothorax. Cardiomediastinal contours: Unremarkable Bones: Unremarkable IMPRESSION: 1. Clear lungs. ATED BY: TRAVON WASSERMAN DO DICTATED DATE/TIME: 10/02/2412 SIGNED BY: TRAVON WASSERMAN DO SIGNED DATE/TIME: 10/02/2412 CC: X-Ray, Labs, Meds, VS Comment PENDING CONSULTATION WITH PSYCHIATRIST DR. JOSÉ. PATIENT WILL BE DISCHARGED PENDING EVALUATION. Time of 1ST Reevaluation: 23:30 Reevaluation 1ST: Unchanged Patient Education/Counseling: Diagnosis, Treatment Family Education/Counseling: Diagnosis, Treatment Assigned to Dr. OCHOA Change of Shift?: Yes Departure 1 Departure Time of Disposition: 02:36 Impression: Primary Impression: Schizophrenia Qualified Codes: F20.0 - Paranoid schizophrenia Additional Impressions: Bipolar 1 disorder, mixed, moderate Psychosis Qualified Codes: F23 - Brief psychotic disorder Disposition: 30 STILL A PATIENT Condition: Fair e-Prescriptions No Active Prescriptions or Reported Meds Discharged With: Self Critical Care Note Critical Care Time?: No Stability Stability form required: No Heart Score Heart Score: Heart Score Response (Comments) Value History Slightly Suspicious 0 EKG Repolarization Disturb 1 Age <45 0 Risk Factors 1 or 2 risk factors 1 Troponin Normal limit 0 Total 2 I personally scribed for JANNA VELEZ [employer] ([email or web address]) on 10/01/24 at 23:37. Electronically submitted by Santos Garcia ([email or web address]). I personally scribed for JANNA VELEZ [employer] ([email or web address]) on 10/02/24 at 01:36. Electronically submitted by Santos Garcia ([email or web address]). I personally scribed for JANNA VELEZ ([email or web address] on 10/02/24 at 02:03. Electronically submitted by Santos Garcia ([email or web address]). JANNA VELEZ Oct 01, 2024 23:37
[2024-10-01 23:50] LABS: Basophils # (auto) 0 10 ^3/uL (0-0.2); Basophils % (auto) 0.2 % (0.0-2.0); Eosinophils # (auto) 0 10 ^3/uL (0-0.8); Hematocrit 45.3 % (41.0-53.0); Hemoglobin 15.4 g/dL (13.5-17.5); Lymphocytes % (auto) 9.8 % (10.0-50.0); Mean Corpuscular Hemoglobin 28.2 pg (28.0-32.0); Mean Corpuscular Hgb Conc. 34.1 g/dL (32.0-36.0); Mean Corpuscular Volume 82.7 fL (80.0-100.0); Monocytes # (auto) 0.7 10 ^3/uL (0-1.3); Monocytes % (auto) 6.4 % (0.0-12.0); Neutrophils % (auto) 83.6 % (37.0-80.0); Nucleated Red Blood Cells % 0.1 %; Platelet Count (auto) 287 10^3/uL (140-450); Red Blood Cells 5.48 10^6/uL (4.5-5.90); Red Cell Distribution Width 13.8 % (11.8-14.3); White Blood Cell 10.8 10^3/uL (4.4-10.8)
[2024-10-02] LABS: Alanine Aminotransferase 28 U/L (7-40); Anion Gap 13 (5-15); Aspartate Aminotransferase 16 U/L (13-40); BUN/Creatinine Ratio 11.5 (10.0-20.0); Blood Urea Nitrogen 15 mg/dL (9-23); Calcium 10.3 mg/dL (8.7-10.4); Carbon Dioxide 21 mmol/L (20-31); Potassium 3.7 mmol/L (3.5-5.1); Sodium 142 mmol/L (136-145)
[2024-10-02 00:01] LABS: Bilirubin, Total 0.9 mg/dL (0.2-1.0); Total Protein 8.1 g/dL (5.7-8.2)
[2024-10-02 00:03] LABS: Albumin 5.2 g/dL (3.2-4.8); Alkaline Phosphatase 128 U/L (46-116); Chloride 108 mmol/L (98-107); Glucose 143 mg/dL (74-106)
--- NOTE | 2024-10-02 00:15 | DVH ---
CHEST RADIOGRAPH Indication: cp Technique: Single frontal view of the chest was obtained Comparison: XY CHEST PORTABLE on DOS: 10/01/24 FINDINGS: Lines and Tubes: None Lungs: Clear Pleura: No effusion. No pneumothorax. Cardiomediastinal contours: Unremarkable Bones: Unremarkable IMPRESSION: 1. Clear lungs.
[2024-10-02 02:10] VITALS: O2SAT 98
[2024-10-02 02:11] VITALS: BP 145/100; PULSE 82; RESP 18
[2024-10-02] MEDS: LORazepam 0.5 MG TAB PO ONE (02:11)
--- NOTE | 2024-10-06 15:28 | ECG ---
[facility] Test Date: 2024-10-01 Test Time: 10:05:50 Pat Name: JARON FRY Department: ER Room: Gender: M Mental Retardation Nurse: JEEVAN : 1990 Requested By: DHEERAJ OCHOA Order Number: [id number] Reading MD: Phil Bell Measurements Intervals [place] Rate: 68 P: 36 GA: 153 QRS: 60 QRSD: 88 T: 49 QT: 408 QTc: 434 Interpretive Statements Sinus rhythm ST elev, probable normal early repol pattern Baseline wander in lead(s) II,III,aVR,aVF,V1,V3,V4,V5,V6 Electronically Signed On 10-08-2024 12:34:10 PST by Phil Bell Please click the below link to view image of tracing.
== END 2024-10-02 02:46 | disposition left against medical advice (07) ==
LOC: ER 22:40
DX: F31.62 Bipolar disorder, current episode mixed, moderate (principal); F20.9 Schizophrenia, unspecified; F29 Unspecified psychosis not due to a substance or known physiological condition; F15.10 Other stimulant abuse, uncomplicated
CPT/HCPCS: 36415; 71045; 80053; 84484; 85025; 93005; 96374; 96375; 99285; J2270; J2405